=== PATIENT | male | born 1965 | race Caucasian/White ===

== ENCOUNTER → 2020-09-01 | Outpatient (CLI) | payer OTHER | LOC: M.ULTRA 07:04 | PROVIDERS: ATTEND Family Medicine | DX: R74.8 Abnormal levels of other serum enzymes (principal) ==

== ENCOUNTER → 2020-09-09 | Outpatient (CLI) | payer OTHER | LOC: M.CT 08:12 | PROVIDERS: ATTEND Family Medicine | DX: K86.89 Other specified diseases of pancreas (principal); R16.0 Hepatomegaly, not elsewhere classified ==

== ENCOUNTER → 2020-09-13 | Outpatient (CLI) | payer OTHER ==
[~2020-09-13] VITALS: Ht 162.6 cm; Wt 100.0 kg
[2020-09-13] VITALS (14 sets, daily range): BP systolic 95–130; BP diastolic 48–89
[2020-09-13 11:00] LABS: HEMATOCRIT 45.4 % (42.0-52.0); HEMOGLOBIN 15.2 gm/dL (14.0-18.0); MCH 30.1 pg (26.0-34.0); MCHC 33.4 g/dL (28.0-37.0); MCV 90.1 fL (80.0-100.0); MPV 8.4 fl. (7.2-11.1); RBC 5.03 mil/uL (4.50-6.00); RDW-CV 13.5 % (10.5-14.5); WBC 5.7 thou/uL (4.0-11.0)
[2020-09-13 11:13] LABS: CALCIUM 9.1 mg/dL (8.5-10.1)
[2020-09-13 11:26] LABS: ALBUMIN 3.6 g/dL (3.4-5.0); TOTAL BILIRUBIN 0.4 mg/dL (<0.1-1.0); TOTAL PROTEIN 6.7 g/dL (6.4-8.2)
[2020-09-13 11:30] LABS: APTT 27.4 Seconds (25.0-31.3); INR 1.1; PROTIME 10.8 Seconds (9.20-11.50)
--- NOTE | 2020-09-30 13:08 | PATH ---
[address] [address] PATHOLOGY RPT PROCEDURE Name: FAVIO DONG Room: [facility] ROSELINE Breanna#: [id number] Admission: 09/13/20 Date of : 67 Discharge: Report #: [id number] Path Case #: [id number] [facility] Accession Number: [id number] . 01 Material submitted: . liver - LIVER MASS TISSUE . 01 Clinical history: . Pancreatic tail mass, with numerous liver lesions. . 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 - Please see comment. (VICENTE:juan antonio; 09/26/2020) QMS 09/26/2020 1210 Local . 02 Comment: Needle biopsy of the liver mass demonstrates involvement by an malignant neoplasm consistent with a neuroendocrine carcinoma. The tumor cells have bland cytologic features. Neither a significant mitotic rate or tumor necrosis is identified. The patient's history of a necrotic pancreatic tail mass, with numerous liver lesions is noted. The findings would be compatible with a pancreatic primary. . The diagnosis is conveyed to Toña, nurse for Dr. Solo, on 09/26/2020. . The case is seen in co-review with Dr. Jose L Hernandez. . . (MLK:juan antonio; 09/26/2020) . 02 Addendum: . Per discussion with Dr. Alix Dee on 09/27/2020, she raises the concern for grade of the neoplasm including possible small cell carcinoma. A properly controlled Ki-67 immunohistochemical stain performed on A1 shows approximately 1-2% nuclear staining and this in addition to the low-grade cytologic features of the neoplasm support that this is not a small cell (undifferentiated) carcinoma. Reviewed with Dr. Cole Britton, who agrees with the classification. (ESTHER:juan antonio; 09/28/2020) . . Professional services performed by [facility] at [facility], [address] [place] [address]. [place] [address] PATHOLOGY RPT PROCEDURE Name: FAVIO DONG Room: [facility] GENA Carlos#: [id number] Admission: 09/13/20 Date of : 67 Discharge: Report #: [id number] Path Case #: [id number] performed at [address] [place] [address], [id number], [place] [address]. QTP/09/28/2020 Addendum Electronically Signed by Jose L Hernandez MD, Pathologist . 02 Electronically signed: . Cole Britton MD, Pathologist NPI- [id number] . 01 Gross description: . The specimen is received in formalin, labeled "PadminiFavio, liver mass BX" and consists of 5 delicate needle cores of brown tissue measuring between 1.4 cm and 2.1 cm in length and 0.1 cm each in diameter which are entirely submitted in A1-A2. (SDY; 09/14/2020) SYU/SYU 09/14/2020 1044 Local . 02 Microscopic: . At one end of the needle cores is a proliferation of malignant cells, in a glandular/acinar pattern as well as in clusters and single cells. The tumor cells have mild to moderate nuclear pleomorphism with focal intranuclear pseudoinclusions noted. The cytoplasm has a granular eosinophilic appearance with focal intracytoplasmic vacules noted. A dense desmoplastic stroma surrounds the tumor cells. A prominent eosinophilic infiltrate is also noted. . Immunohistochemical stain results (properly controlled): . Block A1: . - AE1/AE3 : Tumor cells strongly positive - CK7: Tumor cells strongly positive - CK19: Tumor cells strongly positive - Synaptophysin: Tumor cells strongly positive - CD34: Tumor cells negative - CD31: Tumor cells negative - CEA-P: Tumor cells positive Cytoplasmic and membranous staining - HMB45: Tumor cells negative - S100: Tumor cells negative - SMA: Tumor cells negative . (MLK:juan antonio; 09/26/2020) . 02 Pathologist provided ICD-10: C22.9, K73.9 . 02 CPT . 933026, [id number], A83984, [id number] Specimen Comment: A courtesy copy of this report has been sent to [phone], [phone] [address] PATHOLOGY RPT PROCEDURE Name: FAVIO DONG Room: [facility]#: [id number] Admission: 09/13/20 Date of : 67 Discharge: Report #: [id number] Path Case #: [id number] Specimen Comment: [id number] Specimen Comment: Report sent to / Performed at: 01 [facility] [address] [id number] MD Aurelio Jovel MD Phone: [phone] Performed at: 02 [facility] [address] [id number] MD Kd Vasquez MD Phone: [phone]
== END | disposition home or self-care (01) ==
LOC: M.ULTRA 09:51 → M.LAB 09-15 08:30 → M.ULTRA 09-15 09:30
PROVIDERS: Radiology Diagnostic Radiology; ATTEND Family Medicine
DX: C22.9 Malignant neoplasm of liver, not specified as primary or secondary (principal); K73.9 Chronic hepatitis, unspecified; I10 Essential (primary) hypertension; F17.210 Nicotine dependence, cigarettes, uncomplicated; Z98.890 Other specified postprocedural states; Z79.899 Other long term (current) drug therapy; Z87.442 Personal history of urinary calculi